=== PATIENT | female | born 1975 | race African-American/Black ===

== ENCOUNTER → 2020-11-11 | Outpatient (CLI) | payer BC, MEDICARE ==
--- NOTE | 2020-11-11 17:18 | US ---
EXAMINATION TYPE: US kidneys/renal and bladder DATE OF EXAM: 11/11/2020 COMPARISON: NONE CLINICAL HISTORY: 45-year-old female R94.4 abn renal function TECHNIQUE: Multiple sonographic images of the kidneys and bladder are obtained. FINDINGS: EXAM MEASUREMENTS: Right Kidney: 11.2 x 3.5 x 4.2 cm Left Kidney: 9.4 x 4.6 x 4.2 cm Right Kidney: No hydronephrosis. Left Kidney: Superior pole shows tiny 3 mm echogenic focus, possible stone. Prominent renal pelvis. T here is an echogenic mass at the mid to lower polemeasuring 1.0 x 1.0 x 1.2 cm. Also, there is a smal l 0.8 x 0.8 x0.9cm parapelvic cyst of the lower pole. Bladder: wnl IMPRESSION: 1. Mild pelviectasis on the left probably transient. No calyceal dilatation to suggest marika hydronep hrosis. 2. A 1.2 cm echogenic mass within the mid to lower pole cortex of the left kidney. 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 However, as a small percentage of renal cell carcinoma can present as an echogenic mass, close follow-up in 3 months is recommended. If any enlargement at that time, further CT or MRI evaluation will be recommended. Otherwise, is stable, the area can continue to be followed for at le ast 2 years with ultrasound.
== END | disposition home or self-care (01) ==
LOC: RADUSWWP 13:45
PROVIDERS: ATTEND Internal Medicine
DX: N28.89 Other specified disorders of kidney and ureter (principal)
CPT/HCPCS: 76770